=== PATIENT | female | born 1995 | race Caucasian/White ===

== ENCOUNTER 2025-05-26 17:24 | Emergency (ER) | payer SELFPAY ==
[~2025-05-26] VITALS: Ht 162.6 cm; Wt 73.0 kg
[2025-05-26 18:17] LABS: LEUKOCYTE ESTERASE ,URINE TRACE (NEGATIVE); PROTEIN,URINE DIPSTICK 1+ (NEGATIVE)
[2025-05-26 18:18] LABS: URINE UROBILINOGEN 0.2 mg/dL (0.2 - 1)
[2025-05-26 18:26] LABS: PREGNANCY TEST, URINE NEGATIVE (NEGATIVE)
[2025-05-26 18:30] LABS: EPITHELIAL CELLS,URINE MANY /LPF
[2025-05-26 18:34] LABS: BASOPHILS % 0.8 % (0.0-1.0); EOSINOPHILS % 2.0 % (0.0-6.0); LYMPHOCYTES % 27.9 % (18.0-39.1); MONOCYTES % 4.8 % (4.4-11.3); NEUTROPHILS % 64.2 % (38.7-80.0); RED CELL DISTRIBUTION WIDTH 12.5 % (11.7-14.4)
[2025-05-26 18:42] LABS: EST GLOMERULAR FILTRATION RATE 105.0 ML/MIN (>=60)
[2025-05-26] MEDS: SODIUM CHLORIDE 0.9% 1000ML 1,000 ML IV STA (18:42)
[2025-05-26] MEDS: ONDANSETRON HCL INJ 2MG/ML 2ML 2 MG/ML VIAL IV STA (18:42)
[2025-05-26] MEDS: KETOROLAC TROMETHAMINE 30 MG/ML VIAL IV STA (18:42)
[2025-05-26] MEDS ORDERED: IOPAMIDOL 370 MG/ML 100 ML INFUS..BTL INJ ONE (18:59)
[2025-05-26 20:16] VITALS: PULSE 71; RESP 17; TEMP 98.5
[2025-05-26 20:30] VITALS: BP 115/73; PULSE 71; RESP 17; TEMP 98.5; O2SAT 100
[2025-05-26] MEDS ORDERED: ONDANSETRON ODT4 MG PO (20:38)
[2025-05-26] MEDS ORDERED: KETOROLAC TROME10 MG PO (20:38)
[2025-05-26] MEDS ORDERED: CEPHALEXIN500 MG PO (20:38)
== END 2025-05-26 20:41 | disposition home or self-care (01) ==
LOC: ER 18:04
DX: R10.30 Lower abdominal pain, unspecified (principal); R11.2 Nausea with vomiting, unspecified; F17.210 Nicotine dependence, cigarettes, uncomplicated
CPT/HCPCS: 36415; 74177; 80053; 81001; 81025; 83690; 85025; 99284; Q9967